=== PATIENT | female | born 1980 | race Two or more races ===

== ENCOUNTER → 2025-03-19 | Outpatient (BNVA) | payer MEDICAID, SELFPAY | END | disposition home or self-care (01) | PROVIDERS: PCP Nurse Practitioner Family; Referring Provider Nurse Practitioner Family; Visit Provider Nurse Practitioner Family | DX: Z00.00 Encounter for general adult medical examination without abnormal findings (principal); N95.9 Unspecified menopausal and perimenopausal disorder; Z13.220 Encounter for screening for lipoid disorders; Z13.1 Encounter for screening for diabetes mellitus; Z11.3 Encounter for screening for infections with a predominantly sexual mode of transmission; N39.3 Stress incontinence (female) (male); Z12.11 Encounter for screening for malignant neoplasm of colon; Z28.21 Immunization not carried out because of patient refusal; L81.1 Chloasma | CPT/HCPCS: 99214 ==

== ENCOUNTER → 2025-04-12 | Outpatient (BNVA) | payer MEDICAID, SELFPAY | END | disposition home or self-care (01) | PROVIDERS: PCP Nurse Practitioner Family; Referring Provider Nurse Practitioner Family; Visit Provider Nurse Practitioner Family | DX: Z00.01 Encounter for general adult medical examination with abnormal findings (principal); Z13.220 Encounter for screening for lipoid disorders; Z13.1 Encounter for screening for diabetes mellitus; Z11.3 Encounter for screening for infections with a predominantly sexual mode of transmission; N39.3 Stress incontinence (female) (male); Z71.85 Encounter for immunization safety counseling; Z28.21 Immunization not carried out because of patient refusal; Z12.11 Encounter for screening for malignant neoplasm of colon; N95.9 Unspecified menopausal and perimenopausal disorder | CPT/HCPCS: 99173; 99396; G0439 ==

== ENCOUNTER → 2025-04-19 | Outpatient (BNVA) | payer MEDICAID, SELFPAY | END | disposition home or self-care (01) | PROVIDERS: PCP Nurse Practitioner Family; Referring Provider Nurse Practitioner Family; Visit Provider Nurse Practitioner Family | DX: Z71.2 Person consulting for explanation of examination or test findings (principal); L81.1 Chloasma; E78.5 Hyperlipidemia, unspecified; N95.9 Unspecified menopausal and perimenopausal disorder; Z28.21 Immunization not carried out because of patient refusal | CPT/HCPCS: 99213 ==